=== PATIENT | female | born 1965 | race Caucasian/White ===

== ENCOUNTER 2017-07-03 08:45 | Emergency (ER) | payer MEDICARE, MEDICAID ==
[~2017-07-03] VITALS: Ht 154.9 cm; Wt 79.5 kg
[~2017-07-03 08:45] MED LIST: DOCU-28 PO
[2017-07-03 09:12] VITALS: BP 116/72
[2017-07-03 09:17] LABS: BASOPHILS # (AUTO) 0.1 X10'3 (0-0.2); BASOPHILS % (AUTO) 0.4 % (0-1); EOSINOPHILS # (AUTO) 0.3 X10'3 (0-0.9); EOSINOPHILS % (AUTO) 2.6 % (0-6); HEMATOCRIT 34.9 % (35.0-45.0); HEMOGLOBIN 11.8 g/dl (12.0-16.0); LYMPHOCYTES # (AUTO) 2.4 X10'3 (1.1-4.8); LYMPHOCYTES % (AUTO) 18.6 % (21-51); MEAN CORPUSCULAR HEMOGLOBIN 28.8 PG (27.0-31.0); MEAN CORPUSCULAR HGB CONC 33.9 % (33.0-36.5); MEAN CORPUSCULAR VOLUME 85.1 FL (78-98); MEAN PLATELET VOLUME 8.3 FL (7.4-10.4); MONOCYTES # (AUTO) 0.8 X10'3 (0-0.9); NEUTROPHILS # (AUTO) 9.5 X10'3 (1.8-7.7); NEUTROPHILS % (AUTO) 72.4 % (42-75); PLATELET COUNT 588 X10'3 (140-440); RED CELL DISTRIBUTION WIDTH 16.3 % (11.5-14.5); WHITE BLOOD COUNT 13.1 X10'3 (4.5-11.0)
[2017-07-03 09:20] LABS: CLARITY,URINE CLOUDY (Clear); COLOR,URINE YELLOW (Yellow); GLUCOSE, URINE NEGATIVE (Neg); KETONES,URINE NEGATIVE (Neg); LEUKOCYTE ESTERASE ,URINE NEGATIVE (Neg); NITRITES, URINE NEGATIVE (Neg); OCCULT BLOOD,URINE NEGATIVE (Neg); PH,URINE 5.5 (4.8-8.0); PROTEIN,URINE NEGATIVE (Neg); UROBILINOGEN,URINE 0.2 E.U/dL (0.2-1.0)
[2017-07-03 09:26] LABS: UA COLLECTION TYPE CLN CATCH MIDSTREAM
[2017-07-03 09:28] LABS: BACTERIA,URINE FEW /HPF (Neg); MUCUS STRANDS NONE SEEN /LPF (Neg); RBC,URINE NONE SEEN /HPF (0-2); SQUAMOUS EPITHELIAL CELL,UR FEW /LPF (FEW); WBC,URINE NONE SEEN /HPF (0-4)
[2017-07-03 09:29] LABS: URIC ACID CRYSTALS 4+ /HPF (NEGATIVE)
[2017-07-03 09:41] LABS: ALANINE AMINOTRANSFERASE 24 U/L (12-78); ALBUMIN 3.2 G/DL (3.4-5.0); ALBUMIN/GLOBULIN RATIO 0.7 (1.1-1.5); ALKALINE PHOSPHATASE 119 IU/L (46-116); ANION GAP 10 (8-16); ASPARTATE AMINO TRANSFERASE 26 U/L (10-37); BILIRUBIN,TOTAL 0.3 MG/DL (0.1-1.0); BLOOD UREA NITROGEN 27 MG/DL (7-18); BUN/CREATININE RATIO 29.3 (6.6-38.0); CHLORIDE 105 MMOL/L (99-107); CREATININE 0.92 MG/DL (0.40-0.90); GLUCOSE 89 MG/DL (70-104); POTASSIUM 3.8 MMOL/L (3.5-5.1); SODIUM 141 MMOL/L (135-145); TOTAL CARBON DIOXIDE 25.6 MMOL/L (24-32); TOTAL PROTEIN 8.1 G/DL (6.4-8.2); eGFR 64 ML/MIN
[2017-07-03] MEDS ORDERED: CIPR-230 PO (09:58)
[2017-07-03] MEDS ORDERED: ciprofloxacin 250mg tablet PO ONE (10:00)
[2017-07-03] MEDS ORDERED: MONT10TA21 PO (11:39)
[2017-07-03] MEDS ORDERED: OMEP40CA37 PO (11:40)
[2017-07-03] MEDS ORDERED: ALB0.5UD IH (11:40)
[2017-07-03] MEDS ORDERED: IBUP-1984 PO (11:41)
[2017-07-03] MEDS ORDERED: BACDS PO (11:42)
== END 2017-07-03 10:15 | disposition home or self-care (01) ==
LOC: ER 08:46
DX: L97.919 Non-pressure chronic ulcer of unspecified part of right lower leg with unspecified severity (principal); L03.115 Cellulitis of right lower limb; G89.29 Other chronic pain; J45.909 Unspecified asthma, uncomplicated; Z98.890 Other specified postprocedural states; Z79.899 Other long term (current) drug therapy
CPT/HCPCS: 36415; 71045; 80053; 81001; 83735; 83880; 85025; 99285

== ENCOUNTER 2017-07-03 10:22 | Day surgery (SDC) | payer MEDICARE, MEDICAID ==
[~2017-07-03 10:22] MED LIST changes: +CIPR-230 PO
[2017-07-03] MEDS ORDERED: MONT10TA21 PO (11:39)
[2017-07-03] MEDS ORDERED: OMEP40CA37 PO (11:40)
[2017-07-03] MEDS ORDERED: ALB0.5UD IH (11:40)
[2017-07-03] MEDS ORDERED: IBUP-1984 PO (11:41)
[2017-07-03] MEDS ORDERED: BACDS PO (11:42)
== END 2017-07-03 13:00 | disposition home or self-care (01) ==
LOC: WOUND CARE 10:22
PROVIDERS: ATTEND Surgery
DX: L97.812 Non-pressure chronic ulcer of other part of right lower leg with fat layer exposed (principal); L03.115 Cellulitis of right lower limb; S81.831D Puncture wound without foreign body, right lower leg, subsequent encounter; W22.8XXD Striking against or struck by other objects, subsequent encounter; Y92.89 Other specified places as the place of occurrence of the external cause
CPT/HCPCS: 97597; A6021; A6206; A6212

== ENCOUNTER 2017-07-09 10:45 | Day surgery (SDC) | payer MEDICARE, MEDICAID ==
[~2017-07-09 10:45] MED LIST changes: +ALB0.5UD IH; +BACDS PO; -DOCU-28 PO; +IBUP-1984 PO; +MONT10TA21 PO; +OMEP40CA37 PO
[2017-07-09] MEDS ORDERED: LIDOcaine 2% 5ml jelly ONE (11:17)
[2017-07-09] MEDS ORDERED: RIFA300C4 (15:25)
== END 2017-07-09 12:03 | disposition home or self-care (01) ==
LOC: WOUND CARE 10:45
PROVIDERS: ATTEND Surgery
DX: L97.812 Non-pressure chronic ulcer of other part of right lower leg with fat layer exposed (principal); J45.909 Unspecified asthma, uncomplicated
CPT/HCPCS: 11042; A6021; A6206; A6212

== ENCOUNTER 2021-04-01 07:44 | Day surgery (SDC) | payer MEDICARE, MEDICAID ==
[~2021-04-01] VITALS: Ht 152.4 cm; Wt 74.5 kg
[~2021-04-01 07:44] MED LIST changes: -BACDS PO; -CIPR-230 PO; +OMEP40CA21 PO; -OMEP40CA37 PO; +RIFA300C4; +SULF1TAB45 PO
[2021-04-01 07:58] VITALS: BP 108/52
[2021-04-01] MEDS ORDERED: MIDAZolam 1 MG/ML 5ML VIAL ONE (08:12)
[2021-04-01] MEDS ORDERED: fentaNYL/PF 50MCG/1 ML 2ML syringe ONE (08:12)
[2021-04-01] MEDS ORDERED: LIDOcaine Viscous 15ml cup ONE (08:13)
[2021-04-01 10:20] VITALS: BP 150/75
[2021-04-01 10:30] VITALS: BP 119/71
[2021-04-01 10:40] VITALS: BP 153/118
[2021-04-01 10:50] VITALS: BP 140/75
== END 2021-04-01 11:10 | disposition home or self-care (01) ==
LOC: GI LAB 07:44
PROVIDERS: ATTEND Internal Medicine Gastroenterology
DX: Z12.11 Encounter for screening for malignant neoplasm of colon (principal); D50.9 Iron deficiency anemia, unspecified; D12.3 Benign neoplasm of transverse colon; D12.4 Benign neoplasm of descending colon; D12.8 Benign neoplasm of rectum; K57.30 Diverticulosis of large intestine without perforation or abscess without bleeding; K64.8 Other hemorrhoids; K44.9 Diaphragmatic hernia without obstruction or gangrene; J45.909 Unspecified asthma, uncomplicated; F17.290 Nicotine dependence, other tobacco product, uncomplicated; Z79.899 Other long term (current) drug therapy
CPT/HCPCS: 43239; 45380; 45385; 99153; C1773; G0500; J2250; J3010; J7040; Z7512; 88305; 99152; A4620

== ENCOUNTER 2024-01-12 13:12 | Inpatient (IN) | payer MEDICARE, MEDICAID ==
[~2024-01-12] VITALS: Ht 154.9 cm; Wt 108.6 kg
[~2024-01-12 13:12] MED LIST changes: -ALB0.5UD IH; -IBUP-1984 PO; +MONT-47 PO; -MONT10TA21 PO; -RIFA300C4; -SULF1TAB45 PO
[2024-01-12] MEDS ORDERED: HYDROcodone/acetaminophen 5mg/325mg tablet PO PRN (14:05)
[2024-01-12] MEDS ORDERED: ondansetron/PF 4mg/2ml inj IV PRN (14:05)
[2024-01-12] MEDS ORDERED: potassium Cl 20 mEq SR tablet PO PRN ×2 (14:05)
[2024-01-12] MEDS ORDERED: acetaminophen 325mg tablet PO PRN ×2 (14:05)
[2024-01-12] MEDS ORDERED: magnesium sulf-water 2g/50mL 50 ML IV PRN (14:05)
[2024-01-12] MEDS ORDERED: mag hydrox/Alum hydrox/simeth 30ml oral suspension PO PRN (14:05)
[2024-01-12] MEDS ORDERED: potassium Cl 40MEQ/1/2NS 520ml 520 ML IV PRN (14:05)
[2024-01-12] MEDS ORDERED: magnesium sulf-water 4G/100mL 100 ML IV PRN (14:05)
[2024-01-12] MEDS: ipratropium/albuterol 3ml nebule NEB PRN (15:46)
[2024-01-12 15:47] VITALS: PULSE 77; PULSE 85; RESP 20; RESP 22; O2SAT 72; O2SAT 96
[2024-01-12] MEDS: piperacillin/tazo 4.5gm/100ml 100 ML IV SCH (17:13)
[2024-01-12 18:09] VITALS: BP 111/64; PULSE 84; RESP 22; TEMP 97.6; O2SAT 91
[2024-01-12] MEDS: budesonide 0.5mg/2ml UD nebule IH SCH (19:42)
[2024-01-12 19:43] VITALS: PULSE 85; RESP 20; O2SAT 92
[2024-01-12] MEDS: normal saline 1000ml 1,000 ML IV SCH (19:52)
[2024-01-12 19:59] VITALS: PULSE 81; RESP 20
[2024-01-12 20:00] VITALS: RESP 16
[2024-01-12] MEDS: K and/or MAG REPLACEMENT MC SCH (20:00)
[2024-01-12] MEDS: HYDROcodone/acetaminophen 10/325mg tab PO PRN (21:02)
[2024-01-12] MEDS: docusate sod 100mg capsule PO SCH (21:02)
[2024-01-12] MEDS: enoxaparin 40mg/0.4ml syringe SQ SCH (21:03)
[2024-01-12] MEDS ORDERED: glucagon, human recombinant 1mg kit SUBCUT PRN (21:30)
[2024-01-12] MEDS ORDERED: DEXTROSE 15 GM of carb/4 tabs (each vial/BOTTLE has 4 tablets) PO PRN ×2 (21:30)
[2024-01-12] MEDS ORDERED: dextrose 50%-water 50ml dispensing syringe IV PRN ×2 (21:30)
[2024-01-12 22:00] VITALS: BP 144/74; PULSE 94; RESP 16; TEMP 97.2; O2SAT 96
[2024-01-12] MEDS: VANCOMYCIN 1GM 200ML H20 (PEG) 200 ML IV ONE (22:26)
[2024-01-13] VITALS (45 sets, daily range): BP systolic 84–141; BP diastolic 37–68; PULSE 62–112; RESP 15–24; TEMP 97.5; O2SAT 91–100
[2024-01-13 05:07] LABS: BASOPHILS % (AUTO) 0.1 % (0-1); EOSINOPHILS % (AUTO) 0.2 % (0-6); LYMPHOCYTES # (AUTO) 1.4 X10'3 (1.1-4.8); MONOCYTES # (AUTO) 0.7 X10'3 (0-0.9); NEUTROPHILS # (AUTO) 15.1 X10'3 (1.8-7.7); NEUTROPHILS % (AUTO) 87.7 % (42-75); PLATELET COUNT 344 X10'3 (140-440); RED BLOOD COUNT 4.95 X10'6 (4.20-5.60); WHITE BLOOD COUNT 17.2 X10'3 (4.5-11.0)
[2024-01-13 05:16] LABS: ALANINE AMINOTRANSFERASE 25 U/L (12-78); ALBUMIN 3.2 G/DL (3.4-5.0); ALBUMIN/GLOBULIN RATIO 0.6 (1.1-1.5); ALKALINE PHOSPHATASE 144 IU/L (46-116); ANION GAP -3 (8-16); ASPARTATE AMINO TRANSFERASE 33 U/L (10-37); BILIRUBIN,TOTAL 0.4 MG/DL (0.1-1.0); BLOOD UREA NITROGEN 17 MG/DL (7-18); BUN/CREATININE RATIO 18.1 (10.0-20.0); CALCIUM 8.8 MG/DL (8.5-10.1); CHLORIDE 98 MMOL/L (99-107); CREATININE 0.94 MG/DL (0.40-0.90); GLUCOSE 266 MG/DL (70-104); MAGNESIUM 2.5 MG/DL (1.5-2.4); POTASSIUM 4.6 MMOL/L (3.5-5.1); SODIUM 139 MMOL/L (135-145); TOTAL PROTEIN 8.9 G/DL (6.4-8.2); eCRCL 49 ML/MIN; eGFR 61 ML/MIN
[2024-01-13 05:26] LABS: TOTAL CARBON DIOXIDE 44.3 MMOL/L (24-32)
[2024-01-13] MEDS ORDERED: ipratropium/albuterol 3ml nebule NEB PRN (05:35)
[2024-01-13] MEDS ORDERED: morphine 4 MG/ML inj SYRINge IV PRN (05:35)
[2024-01-13] MEDS ORDERED: magnesium hydroxide 30ml (MOM) UD suspension PO PRN (05:35)
[2024-01-13] MEDS ORDERED: acetaminophen 325mg tablet PO PRN ×2 (05:35)
[2024-01-13] MEDS: albuterol 2.5 MG/3 ML nebule NEB PRN (05:38)
[2024-01-13 05:49] LABS: HEMATOCRIT 44.9 % (35.0-45.0); HEMOGLOBIN 14.4 g/dl (12.0-16.0); MEAN CORPUSCULAR HEMOGLOBIN 31.1 PG (27.0-31.0); MEAN CORPUSCULAR HGB CONC 32.1 g/dL (33.0-36.5); RED CELL DISTRIBUTION WIDTH 15.8 % (11.5-14.5)
[2024-01-13] MEDS: furosemide 20 MG/2 ML vial IV ONE (05:54)
[2024-01-13] MEDS: propofol 1000mg/100ml bottle 100 ML IV ONE (05:55)
[2024-01-13] MEDS: PERFLUTREN PROTEIN-A MICROSPHR (Optison) 0.22 MG/ML 3ML VIAL IV ONE (06:00)
[2024-01-13] MEDS ORDERED: propofol 1000mg/100ml bottle 100 ML IV SCH (06:05)
[2024-01-13] MEDS: ipratropium/albuterol 3ml nebule NEB SCH (06:50)
[2024-01-13] MEDS: furosemide 40mg/4ml inj IV ONE ×2 (06:54→09:04)
[2024-01-13] MEDS ORDERED: INSULIN LISPRO 100 UNIT/ML INSULN.PEN MULTI-DOSE SQ SCH (07:00)
[2024-01-13] MEDS ORDERED: fentaNYL/PF 50MCG/1 ML 2ML syringe IV PRN (07:15)
[2024-01-13] MEDS: propofol 1000mg/100ml bottle 100 ML IV SCH (07:24)
[2024-01-13] MEDS: FENTANYL-0.9 % NACL/PF 100 ML IV SCH (07:25)
[2024-01-13 07:35] LABS: ABG BASE EXCESS 7.7 mmol/L (-2.0-3.0); ABG HCO3 36.8 mmol/L (21.0-28.0); ABG OXYGEN SATURATION 93.5 % (94.0-98.0); ABG PCO2 (T) 67.5 mmHg (32.0-45.0); ABG PH (T) 7.347 (7.350-7.450); ABG PO2 (T) 55.7 mmHg (83.0-108.0); ALLEN'S TEST POSITIVE; FCOHb 1.1 % (0.5-1.5); FHHb 6.4 % (0.0-5.0); FMetHb 0.3 % (0.0-1.5); FO2Hb 92.2 % (94.0-98.0); MODE PRVC; PATIENT TEMPERATURE 35.6; PEEP 5 cm H2O; RESPIRATORY RATE 22 b/min; TIDAL VOLUME 400 mL; TOTAL HEMOGLOBIN 15.3 G/dl (12.0-16.0)
[2024-01-13] MEDS: methylPREDNISolone sod succ/PF 40mg inj. IV SCH (09:03)
[2024-01-13] MEDS: INSULIN LISPRO 100 UNIT/ML INSULN.PEN MULTI-DOSE SQ SCH ×2 (09:18→20:59)
[2024-01-13] MEDS: docusate sodium 100mg/10ml UD cup PO SCH (09:19)
[2024-01-13 09:54] LABS: PHOSPHORUS 7.3 MG/DL (2.3-4.5); PRO BRAIN NATRIURETIC PEPTIDE 317 PG/ML (0-125)
[2024-01-13] MEDS: VANCOMYCIN/WATER FOR INJ (PEG) 1.25GM/250 ML IVPB IV SCH (10:53)
[2024-01-13] MEDS: furosemide 10 MG/1 ML 10ml inj IV ONE (12:03)
[2024-01-13 12:16] LABS: ABG BASE EXCESS 15.3 mmol/L (-2.0-3.0); ABG HCO3 44.9 mmol/L (21.0-28.0); ABG OXYGEN SATURATION 89.1 % (94.0-98.0); ABG PCO2 (T) 76.5 mmHg (32.0-45.0); ABG PH (T) 7.384 (7.350-7.450); ABG PO2 (T) 47.7 mmHg (83.0-108.0); ALLEN'S TEST POSITIVE; FHHb 10.8 % (0.0-5.0); FMetHb 0.3 % (0.0-1.5); FO2Hb 87.9 % (94.0-98.0); MODE PRVC; PATIENT TEMPERATURE 36.4; PEEP 5 cm H2O; RESPIRATORY RATE 24 b/min; TIDAL VOLUME 250 mL; TOTAL HEMOGLOBIN 14.8 G/dl (12.0-16.0)
[2024-01-13] MEDS ORDERED: acetaminophen 325mg tablet OGT PRN ×2 (12:55)
[2024-01-13] MEDS ORDERED: DEXTROSE 15 GM of carb/4 tabs (each vial/BOTTLE has 4 tablets) OGT PRN ×2 (12:55→12:56)
[2024-01-13] MEDS ORDERED: mag hydrox/Alum hydrox/simeth 30ml oral suspension OGT PRN (12:58)
[2024-01-13] MEDS ORDERED: POTASSIUM CHLORIDE 20 MEQ/15 ML oral solution OGT PRN ×2 (12:58→12:59)
[2024-01-13] MEDS ORDERED: magnesium hydroxide 30ml (MOM) UD suspension OGT PRN (12:58)
[2024-01-13] MEDS ORDERED: HYDROcodone/acetaminophen 7.5MG/325MG per 15ml UD CUP OGT PRN ×2 (13:00)
[2024-01-13] MEDS: insulin regular, human U-100 10ml vial - multi-dose SQ SCH (15:14)
[2024-01-13 15:58] LABS: BILIRUBIN,URINE NEGATIVE (Neg); CLARITY,URINE SLIGHTLY CLOUDY (Clear); COLOR,URINE YELLOW (Yellow); GLUCOSE, URINE NEGATIVE (Neg); KETONES,URINE NEGATIVE (Neg); LEUKOCYTE ESTERASE ,URINE NEGATIVE (Neg); NITRITES, URINE NEGATIVE (Neg); OCCULT BLOOD,URINE LARGE (Neg); PH,URINE 5.5 (4.8-8.0); PROTEIN,URINE NEGATIVE (Neg); UROBILINOGEN,URINE 0.2 E.U/dL (0.2-1.0)
[2024-01-13 16:02] LABS: UA COLLECTION TYPE NON-SPECIFIED
[2024-01-13 16:05] LABS: ALBUMIN 2.6 G/DL (3.4-5.0); ANION GAP 6 (8-16); BLOOD UREA NITROGEN 15 MG/DL (7-18); BUN/CREATININE RATIO 14.4 (10.0-20.0); CALCIUM 8.8 MG/DL (8.5-10.1); CHLORIDE 97 MMOL/L (99-107); CREATININE 1.04 MG/DL (0.40-0.90); GLUCOSE 248 MG/DL (70-104); SODIUM 145 MMOL/L (135-145); eCRCL 44 ML/MIN; eGFR 54 ML/MIN
[2024-01-13 16:10] LABS: TOTAL CARBON DIOXIDE 42.4 MMOL/L (24-32)
[2024-01-13 16:37] LABS: HYALINE CASTS 0-3 /LPF (NEGATIVE); SQUAMOUS EPITHELIAL CELL,UR FEW /LPF (FEW); WBC,URINE 0-4 /HPF (0-4)
[2024-01-13 16:38] LABS: BACTERIA,URINE FEW /HPF (Neg); RBC,URINE 50-100 /HPF (0-2)
[2024-01-13] MEDS: potassium Cl 40MEQ/270ML bag 270 ML IV PRN (17:07)
[2024-01-13 17:35] LABS: UA EOSINOPHILS NO EOS /HPF
[2024-01-13] MEDS: docusate sodium 100mg/10ml UD cup OGT SCH (19:57)
[2024-01-13] MEDS ORDERED: furosemide 40mg/4ml inj IV SCH (20:00)
[2024-01-13] MEDS: NORepinephrine 8mg/ 250ml NS 250 ML IV PRN (20:04)
[2024-01-13 22:33] LABS: OSMOLALITY 318 MOSM/K (280-300)
[2024-01-13 22:43] LABS: ALANINE AMINOTRANSFERASE 20 U/L (12-78); ALBUMIN 2.4 G/DL (3.4-5.0); ALBUMIN/GLOBULIN RATIO 0.5 (1.1-1.5); ALKALINE PHOSPHATASE 99 IU/L (46-116); ANION GAP 4 (8-16); ASPARTATE AMINO TRANSFERASE 25 U/L (10-37); BILIRUBIN,TOTAL 0.5 MG/DL (0.1-1.0); BLOOD UREA NITROGEN 17 MG/DL (7-18); CALCIUM 8.8 MG/DL (8.5-10.1); CHLORIDE 97 MMOL/L (99-107); GLUCOSE 237 MG/DL (70-104); POTASSIUM 3.4 MMOL/L (3.5-5.1); SODIUM 140 MMOL/L (135-145); TOTAL PROTEIN 7.4 G/DL (6.4-8.2); eCRCL 46 ML/MIN; eGFR 57 ML/MIN
[2024-01-13 22:49] LABS: MAGNESIUM 1.9 MG/DL (1.5-2.4)
[2024-01-13 22:58] LABS: PHOSPHORUS 0.9 MG/DL (2.3-4.5)
[2024-01-14] VITALS (42 sets, daily range): BP systolic 85–140; BP diastolic 37–77; PULSE 76–103; RESP 8–26; O2SAT 88–96
[2024-01-14 03:11] LABS: ABG BASE EXCESS 12.7 mmol/L (-2.0-3.0); ABG HCO3 40.3 mmol/L (21.0-28.0); ABG OXYGEN SATURATION 90.8 % (94.0-98.0); ABG PCO2 (T) 64.4 mmHg (32.0-45.0); ABG PH (T) 7.415 (7.350-7.450); ALLEN'S TEST POSITIVE; FCOHb 0.8 % (0.5-1.5); FHHb 9.1 % (0.0-5.0); FMetHb 0.3 % (0.0-1.5); FO2Hb 89.8 % (94.0-98.0); MODE VENT - AC; PATIENT TEMPERATURE 37.1; PEEP 5 cm H2O; RESPIRATORY RATE 24 b/min; TIDAL VOLUME 250 mL; TOTAL HEMOGLOBIN 14.5 G/dl (12.0-16.0)
[2024-01-14] MEDS: potassium phosphate inj 15 MMOL in normal saline 250ml IV soln 250 ML IV ONE (03:49)
[2024-01-14 04:26] LABS: BASOPHILS % (AUTO) 0.2 % (0-1); EOSINOPHILS % (AUTO) 0 % (0-6); HEMATOCRIT 42.8 % (35.0-45.0); HEMOGLOBIN 13.7 g/dl (12.0-16.0); LYMPHOCYTES # (AUTO) 0.3 X10'3 (1.1-4.8); MEAN CORPUSCULAR HEMOGLOBIN 30.7 PG (27.0-31.0); MEAN CORPUSCULAR HGB CONC 32.1 g/dL (33.0-36.5); MEAN CORPUSCULAR VOLUME 95.4 FL (78-98); MEAN PLATELET VOLUME 8.9 FL (7.4-10.4); MONOCYTES # (AUTO) 0.4 X10'3 (0-0.9); MONOCYTES % (AUTO) 2.4 % (2-12); NEUTROPHILS # (AUTO) 14.9 X10'3 (1.8-7.7); NEUTROPHILS % (AUTO) 95.4 % (42-75); PLATELET COUNT 304 X10'3 (140-440); RED BLOOD COUNT 4.48 X10'6 (4.20-5.60); RED CELL DISTRIBUTION WIDTH 15.8 % (11.5-14.5); WHITE BLOOD COUNT 15.7 X10'3 (4.5-11.0)
[2024-01-14 04:52] LABS: ALANINE AMINOTRANSFERASE 19 U/L (12-78); ALBUMIN 2.5 G/DL (3.4-5.0); ALBUMIN/GLOBULIN RATIO 0.5 (1.1-1.5); ALKALINE PHOSPHATASE 96 IU/L (46-116); ANION GAP 4 (8-16); ASPARTATE AMINO TRANSFERASE 18 U/L (10-37); BILIRUBIN,TOTAL 0.6 MG/DL (0.1-1.0); BLOOD UREA NITROGEN 17 MG/DL (7-18); BUN/CREATININE RATIO 20.7 (10.0-20.0); CALCIUM 9.2 MG/DL (8.5-10.1); CHLORIDE 104 MMOL/L (99-107); CREATININE 0.82 MG/DL (0.40-0.90); GLUCOSE 212 MG/DL (70-104); MAGNESIUM 2.1 MG/DL (1.5-2.4); PHOSPHORUS 1.3 MG/DL (2.3-4.5); POTASSIUM 3.8 MMOL/L (3.5-5.1); SODIUM 146 MMOL/L (135-145); TOTAL CARBON DIOXIDE 37.7 MMOL/L (24-32); TOTAL PROTEIN 7.4 G/DL (6.4-8.2); TRIGLYCERIDES 164 MG/DL (20-135); eCRCL 56 ML/MIN; eGFR 72 ML/MIN
[2024-01-14] MEDS: mineral oil/petrolatum ophthal oint EACHEYE SCH (07:09)
[2024-01-14] MEDS: pantoprazole 40 MG vial IV SCH (07:09)
[2024-01-14 08:18] LABS: ABG BASE EXCESS 9.9 mmol/L (-2.0-3.0); ABG HCO3 35.9 mmol/L (21.0-28.0); ABG OXYGEN SATURATION 96.4 % (94.0-98.0); ABG PCO2 (T) 54.1 mmHg (32.0-45.0); ABG PH (T) 7.441 (7.350-7.450); ABG PO2 (T) 77.7 mmHg (83.0-108.0); ALLEN'S TEST POSITIVE; FCOHb 0.8 % (0.5-1.5); FHHb 3.6 % (0.0-5.0); FMetHb 0.3 % (0.0-1.5); FO2Hb 95.3 % (94.0-98.0); MODE VENT - CPAP; PATIENT TEMPERATURE 37.4; PEEP 5 cm H2O; TOTAL HEMOGLOBIN 14.8 G/dl (12.0-16.0)
[2024-01-14] MEDS: racepinephrine 11.25mg/0.5ml nebule IH PRN (10:10)
[2024-01-14] MEDS: morphine 2 MG/ML inj. syringe IV PRN (10:24)
[2024-01-14] MEDS: dexamethasone sod phosphate 10mg/ml inj IV STA (10:25)
[2024-01-14] MEDS ORDERED: LORazepam 2 mg/ml vial IV PRN (10:45)
[2024-01-14] MEDS ORDERED: FLUT1BLS16 INH (15:02)
[2024-01-14] MEDS: dexamethasone sod phosphate 10mg/ml inj IV SCH (15:50)
[2024-01-14] MEDS: ringers solution, lacted 1,000 ML IV ONE (17:18)
[2024-01-14] MEDS: VANCOMYCIN LEVEL IV ONE (21:21)
[2024-01-15] VITALS (25 sets, daily range): BP systolic 119–138; BP diastolic 53–80; PULSE 64–88; RESP 12–22; TEMP 96.8–97.6; O2SAT 90–99
[2024-01-15 02:41] LABS: BASOPHILS % (AUTO) 0.1 % (0-1); EOSINOPHILS % (AUTO) 0 % (0-6); HEMATOCRIT 41.4 % (35.0-45.0); HEMOGLOBIN 13.3 g/dl (12.0-16.0); LYMPHOCYTES # (AUTO) 0.4 X10'3 (1.1-4.8); LYMPHOCYTES % (AUTO) 2.8 % (21-51); MEAN CORPUSCULAR HEMOGLOBIN 30.6 PG (27.0-31.0); MEAN CORPUSCULAR HGB CONC 32.1 g/dL (33.0-36.5); MEAN CORPUSCULAR VOLUME 95.4 FL (78-98); MEAN PLATELET VOLUME 8.5 FL (7.4-10.4); MONOCYTES # (AUTO) 0.8 X10'3 (0-0.9); MONOCYTES % (AUTO) 5.4 % (2-12); NEUTROPHILS # (AUTO) 13.5 X10'3 (1.8-7.7); NEUTROPHILS % (AUTO) 91.7 % (42-75); PLATELET COUNT 284 X10'3 (140-440); RED BLOOD COUNT 4.33 X10'6 (4.20-5.60); RED CELL DISTRIBUTION WIDTH 16.4 % (11.5-14.5); WHITE BLOOD COUNT 14.7 X10'3 (4.5-11.0)
[2024-01-15 03:00] LABS: ALANINE AMINOTRANSFERASE 16 U/L (12-78); ALBUMIN 2.5 G/DL (3.4-5.0); ALBUMIN/GLOBULIN RATIO 0.5 (1.1-1.5); ALKALINE PHOSPHATASE 81 IU/L (46-116); ANION GAP 1 (8-16); ASPARTATE AMINO TRANSFERASE 20 U/L (10-37); BILIRUBIN,TOTAL 0.5 MG/DL (0.1-1.0); BLOOD UREA NITROGEN 21 MG/DL (7-18); BUN/CREATININE RATIO 31.8 (10.0-20.0); CALCIUM 8.8 MG/DL (8.5-10.1); CHLORIDE 102 MMOL/L (99-107); CREATININE 0.66 MG/DL (0.40-0.90); GLUCOSE 143 MG/DL (70-104); MAGNESIUM 2.1 MG/DL (1.5-2.4); PHOSPHORUS 3.1 MG/DL (2.3-4.5); POTASSIUM 3.7 MMOL/L (3.5-5.1); SODIUM 142 MMOL/L (135-145); TOTAL CARBON DIOXIDE 38.6 MMOL/L (24-32); TOTAL PROTEIN 7.1 G/DL (6.4-8.2); eCRCL 70 ML/MIN; eGFR > 90 ML/MIN
[2024-01-15] MEDS ORDERED: acetaminophen 325mg tablet PO PRN (09:36)
[2024-01-15] MEDS ORDERED: DEXTROSE 15 GM of carb/4 tabs (each vial/BOTTLE has 4 tablets) PO PRN ×2 (09:36)
[2024-01-15] MEDS ORDERED: mag hydrox/Alum hydrox/simeth 30ml oral suspension PO PRN (09:37)
[2024-01-15] MEDS ORDERED: HYDROcodone/acetaminophen 7.5MG/325MG per 15ml UD CUP PO PRN (09:37)
[2024-01-15] MEDS ORDERED: magnesium hydroxide 30ml (MOM) UD suspension PO PRN (09:37)
[2024-01-15] MEDS ORDERED: POTASSIUM CHLORIDE 20 MEQ/15 ML oral solution PO PRN ×2 (09:38)
[2024-01-15] MEDS ORDERED: VANCOMYCIN/WATER FOR INJ (PEG) 1.5GM/300 ML IVPB IV SCH (10:00)
[2024-01-15] MEDS: INSULIN LISPRO 100 UNIT/ML INSULN.PEN MULTI-DOSE SQ SCH (12:00)
[2024-01-15] MEDS: furosemide 40mg/4ml inj IV ONE (12:12)
[2024-01-15] MEDS: HYDROcodone/acetaminophen 7.5MG/325MG per 15ml UD CUP PO PRN (12:40)
[2024-01-15] MEDS: docusate sodium 100mg/10ml UD cup PO SCH (19:51)
[2024-01-16] VITALS (17 sets, daily range): BP systolic 115–144; BP diastolic 45–93; PULSE 68–90; RESP 14–23; TEMP 96.8–98.4; O2SAT 92–98
[2024-01-16 07:57] LABS: EOSINOPHILS % (AUTO) 0.1 % (0-6); HEMOGLOBIN 14.7 g/dl (12.0-16.0)
[2024-01-16 08:00] LABS: BASOPHILS % (AUTO) 0.1 % (0-1); HEMATOCRIT 45.7 % (35.0-45.0); LYMPHOCYTES # (AUTO) 0.4 X10'3 (1.1-4.8); LYMPHOCYTES % (AUTO) 3.6 % (21-51); MEAN CORPUSCULAR HEMOGLOBIN 30.8 PG (27.0-31.0); MEAN CORPUSCULAR HGB CONC 32.2 g/dL (33.0-36.5); MEAN CORPUSCULAR VOLUME 95.5 FL (78-98); MEAN PLATELET VOLUME 8.8 FL (7.4-10.4); MONOCYTES # (AUTO) 0.4 X10'3 (0-0.9); MONOCYTES % (AUTO) 4.4 % (2-12); NEUTROPHILS # (AUTO) 8.8 X10'3 (1.8-7.7); NEUTROPHILS % (AUTO) 91.8 % (42-75); PLATELET COUNT 301 X10'3 (140-440); RED BLOOD COUNT 4.78 X10'6 (4.20-5.60); RED CELL DISTRIBUTION WIDTH 16.1 % (11.5-14.5); WHITE BLOOD COUNT 9.6 X10'3 (4.5-11.0)
[2024-01-16] MEDS: acetaminophen 325mg tablet PO PRN (08:19)
[2024-01-16 08:35] LABS: ALANINE AMINOTRANSFERASE 13 U/L (12-78); ALBUMIN 2.9 G/DL (3.4-5.0); ALBUMIN/GLOBULIN RATIO 0.6 (1.1-1.5); ALKALINE PHOSPHATASE 83 IU/L (46-116); ANION GAP 4 (8-16); ASPARTATE AMINO TRANSFERASE 22 U/L (10-37); BILIRUBIN,TOTAL 0.4 MG/DL (0.1-1.0); BLOOD UREA NITROGEN 29 MG/DL (7-18); CHLORIDE 102 MMOL/L (99-107); CREATININE 0.63 MG/DL (0.40-0.90); GLUCOSE 158 MG/DL (70-104); MAGNESIUM 2.6 MG/DL (1.5-2.4); PHOSPHORUS 4.7 MG/DL (2.3-4.5); SODIUM 141 MMOL/L (135-145); TOTAL CARBON DIOXIDE 35.1 MMOL/L (24-32); TOTAL PROTEIN 7.9 G/DL (6.4-8.2); eCRCL 73 ML/MIN; eGFR > 90 ML/MIN
[2024-01-16 08:39] LABS: POTASSIUM 3.8 MMOL/L (3.5-5.1)
[2024-01-16] MEDS: piperacillin/tazo 4.5gm/100ml 100 ML IV SCH (10:15)
[2024-01-16] MEDS: dexamethasone sod phosphate 10mg/ml inj IV SCH (16:03)
[2024-01-16] MEDS: lactose-reduced food (Ensure Enlive) - 237ml bottle PO SCH (18:00)
[2024-01-16] MEDS ORDERED: VANCOMYCIN LEVEL IV ONE (21:30)
[2024-01-17] VITALS (18 sets, daily range): BP systolic 129–153; BP diastolic 57–80; PULSE 66–88; RESP 15–23; TEMP 97.2–98; O2SAT 91–98
[2024-01-17 08:23] LABS: BASOPHILS % (AUTO) 0 % (0-1); EOSINOPHILS % (AUTO) 0 % (0-6); HEMATOCRIT 43.8 % (35.0-45.0); HEMOGLOBIN 14.4 g/dl (12.0-16.0); LYMPHOCYTES # (AUTO) 0.3 X10'3 (1.1-4.8); MEAN CORPUSCULAR HEMOGLOBIN 31.3 PG (27.0-31.0); MEAN CORPUSCULAR HGB CONC 32.8 g/dL (33.0-36.5); MEAN CORPUSCULAR VOLUME 95.4 FL (78-98); MEAN PLATELET VOLUME 8.9 FL (7.4-10.4); MONOCYTES # (AUTO) 0.4 X10'3 (0-0.9); MONOCYTES % (AUTO) 4.9 % (2-12); NEUTROPHILS # (AUTO) 7.9 X10'3 (1.8-7.7); NEUTROPHILS % (AUTO) 92.1 % (42-75); PLATELET COUNT 274 X10'3 (140-440); RED BLOOD COUNT 4.59 X10'6 (4.20-5.60); RED CELL DISTRIBUTION WIDTH 16.5 % (11.5-14.5); WHITE BLOOD COUNT 8.6 X10'3 (4.5-11.0)
[2024-01-17 08:38] LABS: ALANINE AMINOTRANSFERASE 19 U/L (12-78); ALBUMIN 2.9 G/DL (3.4-5.0); ALBUMIN/GLOBULIN RATIO 0.6 (1.1-1.5); ALKALINE PHOSPHATASE 69 IU/L (46-116); ANION GAP 1 (8-16); ASPARTATE AMINO TRANSFERASE 20 U/L (10-37); BILIRUBIN,TOTAL 0.5 MG/DL (0.1-1.0); BLOOD UREA NITROGEN 26 MG/DL (7-18); BUN/CREATININE RATIO 38.8 (10.0-20.0); CALCIUM 8.8 MG/DL (8.5-10.1); CHLORIDE 101 MMOL/L (99-107); CREATININE 0.67 MG/DL (0.40-0.90); GLUCOSE 159 MG/DL (70-104); MAGNESIUM 2.4 MG/DL (1.5-2.4); PHOSPHORUS 3.9 MG/DL (2.3-4.5); SODIUM 140 MMOL/L (135-145); TOTAL CARBON DIOXIDE 38.1 MMOL/L (24-32); TOTAL PROTEIN 7.4 G/DL (6.4-8.2); eCRCL 69 ML/MIN; eGFR 90 ML/MIN
[2024-01-17] MEDS: lactobacillus rhamnosus 10,000 MMU CELLS/CAPSULE PO SCH (08:47)
[2024-01-17] MEDS: amox tr/potassium clavulanate 875/125mg TAB PO SCH (18:07)
[2024-01-17] MEDS: diphenhydrAMINE 25mg capsule PO ONE (22:30)
[2024-01-18] VITALS (10 sets, daily range): BP systolic 100–140; BP diastolic 39–64; PULSE 62–85; RESP 12–20; TEMP 96.6–98.7; O2SAT 92–97
[2024-01-18 06:45] LABS: BASOPHILS % (AUTO) 0.2 % (0-1); EOSINOPHILS # (AUTO) 0.1 X10'3 (0-0.9); EOSINOPHILS % (AUTO) 0.8 % (0-6); HEMATOCRIT 45.9 % (35.0-45.0); HEMOGLOBIN 14.8 g/dl (12.0-16.0); LYMPHOCYTES # (AUTO) 0.9 X10'3 (1.1-4.8); LYMPHOCYTES % (AUTO) 8.8 % (21-51); MEAN CORPUSCULAR HEMOGLOBIN 30.9 PG (27.0-31.0); MEAN CORPUSCULAR HGB CONC 32.2 g/dL (33.0-36.5); MEAN CORPUSCULAR VOLUME 95.9 FL (78-98); MEAN PLATELET VOLUME 8.8 FL (7.4-10.4); MONOCYTES # (AUTO) 1.1 X10'3 (0-0.9); MONOCYTES % (AUTO) 11.2 % (2-12); NEUTROPHILS # (AUTO) 7.8 X10'3 (1.8-7.7); PLATELET COUNT 265 X10'3 (140-440); RED BLOOD COUNT 4.79 X10'6 (4.20-5.60); WHITE BLOOD COUNT 9.8 X10'3 (4.5-11.0)
[2024-01-18 06:58] LABS: ALANINE AMINOTRANSFERASE 18 U/L (12-78); ALBUMIN 2.8 G/DL (3.4-5.0); ALBUMIN/GLOBULIN RATIO 0.7 (1.1-1.5); ALKALINE PHOSPHATASE 65 IU/L (46-116); ANION GAP 2 (8-16); ASPARTATE AMINO TRANSFERASE 24 U/L (10-37); BILIRUBIN,TOTAL 0.4 MG/DL (0.1-1.0); BLOOD UREA NITROGEN 25 MG/DL (7-18); BUN/CREATININE RATIO 43.9 (10.0-20.0); CALCIUM 8.4 MG/DL (8.5-10.1); CHLORIDE 103 MMOL/L (99-107); CREATININE 0.57 MG/DL (0.40-0.90); GLUCOSE 91 MG/DL (70-104); MAGNESIUM 2.4 MG/DL (1.5-2.4); PHOSPHORUS 3.8 MG/DL (2.3-4.5); SODIUM 141 MMOL/L (135-145); TOTAL CARBON DIOXIDE 36.1 MMOL/L (24-32); TOTAL PROTEIN 6.9 G/DL (6.4-8.2); eCRCL 81 ML/MIN; eGFR > 90 ML/MIN
[2024-01-18 07:05] LABS: POTASSIUM 3.6 MMOL/L (3.5-5.1)
[2024-01-18] MEDS: prednisone 10mg tablet PO SCH (08:47)
[2024-01-18] MEDS: pantoprazole 40mg Tablet.DR PO SCH (08:47)
[2024-01-18] MEDS: diphenhydrAMINE 25mg capsule PO ONE (10:16)
== END 2024-01-18 16:00 | disposition swing bed (61) | DRG 871 ==
LOC: ER 13:12 → ED HOLD 14:15 → SUR 3N 17:40 → CICU 2S 01-13 04:55 → PCU 3S 01-15 15:00
PROVIDERS: ADMIT Family Medicine; ATTEND Family Medicine
PROC: 02HV33Z Insertion of Infusion Device into Superior Vena Cava, Percutaneous Approach (ICD-10-PCS; principal; 2024-01-13)
PROC: B548ZZA Ultrasonography of Superior Vena Cava, Guidance (ICD-10-PCS; 2024-01-13)
PROC: 5A1945Z Respiratory Ventilation, 24-96 Consecutive Hours (ICD-10-PCS; 2024-01-13)
PROC: 0BH17EZ Insertion of Endotracheal Airway into Trachea, Via Natural or Artificial Opening (ICD-10-PCS; 2024-01-13)
DX: A41.9 Sepsis, unspecified organism (principal); G93.41 Metabolic encephalopathy; J15.9 Unspecified bacterial pneumonia; J80 Acute respiratory distress syndrome; J69.0 Pneumonitis due to inhalation of food and vomit; J44.0 Chronic obstructive pulmonary disease with (acute) lower respiratory infection; J44.1 Chronic obstructive pulmonary disease with (acute) exacerbation; N17.9 Acute kidney failure, unspecified; E11.65 Type 2 diabetes mellitus with hyperglycemia; F15.90 Other stimulant use, unspecified, uncomplicated; G47.30 Sleep apnea, unspecified; I27.20 Pulmonary hypertension, unspecified; R62.50 Unspecified lack of expected normal physiological development in childhood; G89.29 Other chronic pain; E87.6 Hypokalemia; I50.9 Heart failure, unspecified; Z79.84 Long term (current) use of oral hypoglycemic drugs; Z88.1 Allergy status to other antibiotic agents
CPT/HCPCS: 36415; 36600; 71045; 80048; 80053; 80202; 81001; 82140; 82570; 82803; 82948; 83036; 83605; 83735; 83880; 83930; 83935; 84100; 84145; 84300; 84478; 85018; 85025; 87040; 87070; 87207; 92508; 92616; 93005; 93306; 94002; 94003; 94640; 94760; 94799; 97110; 97162; 97530; 99291; A4314; A4615; A6258; A6449; A7015; A9900; C1751; G0378; J1100; J1650; J1815; J1940; J2270; J2470; J2543; J2704; J2919; J3010; J3372; J3480; J3490; J7030; J7040; J7050; J7120; J7512; Q0163